=== PATIENT | female | born 1980 | race Caucasian/White ===

== ENCOUNTER 2018-02-16 21:33 | Emergency (ER) | payer BC ==
[2018-02-16] MEDS ORDERED: HYDRALAZINE HYDROCHLORIDE 20 MG/ML SOL IM ONE (21:40)
[2018-02-16] MEDS ORDERED: CLONIDINE 0.1 MG TAB PO ONE (21:42)
[2018-02-16] MEDS ORDERED: HYDRALAZINE HYDROCHLORIDE 20 MG/ML SOL IV ONE (21:48)
[2018-02-16] MEDS ORDERED: HYDRALAZINE HYDROCHLORIDE 20 MG/ML SOL ONE (21:52)
[2018-02-16] MEDS ORDERED: CLONIDINE 0.1 MG TAB ONE (21:52)
[2018-02-16 21:53] LABS: BASOPHILS % (AUTO) 1 % (0-3); EOSINOPHILS % (AUTO) 8 % (0-9); HEMATOCRIT 37 % (35-47); HEMOGLOBIN 12.8 gm/dl (12.0-15.5); LYMPHOCYTES % (AUTO) 33.1 % (10-50); MEAN CORPUSCULAR HEMOGLOBIN 29.7 pg (27.0-32.0); MEAN CORPUSCULAR HGB CONC 34.8 gm/dl (32.0-36.0); MEAN CORPUSCULAR VOLUME 85 fL (81-99); MONOCYTES % (AUTO) 11.2 % (0-12); NEUTROPHILS % (AUTO) 46.2 % (37-80)
[2018-02-16 22:06] VITALS: TEMP 97.6; O2SAT 100
[2018-02-16 22:16] LABS: BLOOD UREA NITROGEN 13 mg/dl (7-18); CALCIUM 8.9 mg/dl (8.5-10.1); CARBON DIOXIDE 26.6 mEq/L (21-32); CHLORIDE 103 mMol/L (98-107); CREATININE 0.65 mg/dl (0.60-1.00); GLUCOSE 90 mg/dl (74-106); POTASSIUM 3.3 mMol/L (3.5-5.1); SODIUM 139 mMol/L (136-145); THYROID STIMULATING HORMONE 5.689 uIU/ml (0.358-3.740); TROP I < 0.017 ng/ml (0.000-0.056)
[2018-02-16] MEDS ORDERED: POTASSIUM CHLORIDE 10 MEQ TER PO ONE (22:31)
[2018-02-16] MEDS ORDERED: POTASSIUM CHLORIDE 10 MEQ TER ONE (22:32)
[2018-02-16 22:54] VITALS: BP 116/84; PULSE 61; RESP 26
== END 2018-02-16 22:45 | disposition home or self-care (01) ==
LOC: ED 21:33
DX: I16.9 Hypertensive crisis, unspecified (principal); R07.89 Other chest pain
CPT/HCPCS: 36415; 71045; 80048; 84443; 84484; 85025; 93005; 99283; 99285; J0360; A9270-GY